=== PATIENT | male | born 1975 | race Caucasian/White ===

== ENCOUNTER 2021-11-11 13:08 | Inpatient (IN) | payer OTHER ==
[2021-11-11 16:56] VITALS: BMI 32.6
[2021-11-11] MEDS ORDERED: LOPERAMIDE HCL 2 MG CAPSULE PO PRN (17:17)
[2021-11-11] MEDS ORDERED: BISMUTH SUBSALICYLATE 524 MG/30 ML PO PRN (17:17)
[2021-11-11] MEDS ORDERED: ACETAMINOPHEN 325 MG TABLET (FP) PO PRN ×2 (17:17)
[2021-11-11] MEDS ORDERED: MAGNESIUM HYDROX 2400MG/30ML ORAL SUSPENSION 30 ML CUP PO PRN (17:17)
[2021-11-11] MEDS ORDERED: MAGNESIUM CITRATE 300 ML BOTTLE PO PRN (17:17)
[2021-11-11] MEDS ORDERED: IBUPROFEN 400 MG TABLET (FP) PO PRN (17:17)
[2021-11-11] MEDS ORDERED: MAG HYDROX/AL HYDROX/SIMETH 30 ML UNIT-DOSE CUP PO PRN (17:17)
[2021-11-11] MEDS ORDERED: ONDANSETRON *ODT* 4 MG TABLET SL PRN (17:17)
[2021-11-11] MEDS ORDERED: MENTHOL/PHENOL 1 EACH UD MM PRN (17:17)
[2021-11-11] MEDS ORDERED: hydrOXYzine PAMOATE 25 MG CAPSULE (FP) PO PRN (17:17)
[2021-11-11] MEDS ORDERED: MELATONIN 5 MG TABLETS PO PRN (17:17)
[2021-11-11] MEDS ORDERED: NICOTINE 10 MG CARTRIDGE (INHALER) IH PRN (17:17)
[2021-11-11] MEDS ORDERED: METHOCARBAMOL 500 MG TABLET PO PRN (17:17)
[2021-11-11] MEDS ORDERED: methaDONE HCL 10 MG TABLET (FOR DETOX USE ONLY) PO ONE (17:19)
[2021-11-11] MEDS ORDERED: cloNIDine HCL 0.1 MG TABLET PO PRN (17:19)
[2021-11-11] MEDS ORDERED: methaDONE HCL 10 MG TABLET (FOR DETOX USE ONLY) ONE (20:16)
[2021-11-11] MEDS ORDERED: THIAMINE HCL 100 MG TABLET (FP) PO SCH (22:00)
[2021-11-12] MEDS: diazePAM 5 MG TABLET PO PRN ×3 (02:19→10:17)
[2021-11-12] MEDS ORDERED: methaDONE HCL 10 MG TABLET (FOR DETOX USE ONLY) ONE (09:12)
[2021-11-12 09:35] VITALS: BP 136/90; PULSE 51; TEMP 97.7
[2021-11-12] MEDS ORDERED: PRENATAL VITAMINS W/ FOLIC ACID TABLET (FP) PO SCH (10:00)
[2021-11-12 10:52] LABS: HEMATOCRIT 38.2 % (35.4-49); HEMOGLOBIN 13.3 GM/dL (11.7-16.9); MCH 30.4 pg (25.7-33.7); MCHC 34.7 g/dl (32.0-35.9); MEAN CELL VOLUME 87.6 fl (80-96); MEAN PLT VOLUME 7.9 fl (7.5-11.1); PLATELET COUNT 173 10^3/uL (134-434); RBC 4.37 M/mm3 (4.00-5.60); RDW 12.9 % (11.9-15.9); WHITE BLOOD COUNT 4.8 K/mm3 (4.0-10.0)
[2021-11-12 11:20] LABS: ALBUMIN 3.3 g/dl (3.4-5.0); CALCIUM 8.6 mg/dL (8.5-10.1)
[2021-11-12 11:21] LABS: BLOOD UREA NITROGEN 12.1 mg/dL (7-18)
[2021-11-12 11:23] LABS: CREATININE 0.8 mg/dL (0.55-1.3)
[2021-11-12 11:25] LABS: TOT PROT 6.3 g/dl (6.4-8.2)
[2021-11-12 11:26] LABS: BILIRUBIN,TOTAL 0.4 mg/dL (0.2-1)
[2021-11-13] MEDS ORDERED: methaDONE HCL 10 MG TABLET (FOR DETOX USE ONLY) PO ONE (10:00)
[2021-11-15] MEDS ORDERED: methaDONE HCL 10 MG TABLET (FOR DETOX USE ONLY) PO ONE (10:00)
== END 2021-11-12 13:42 | disposition left against medical advice (07) | DRG 770 ==
LOC: YASAS 13:08 → Y6N 19:20
PROVIDERS: ADMIT Allergy & Immunology; ATTEND Allergy & Immunology
PROC: HZ2ZZZZ Detoxification Services for Substance Abuse Treatment (ICD-10-PCS; principal; 2021-11-11)
DX: F11.23 Opioid dependence with withdrawal (principal); F14.20 Cocaine dependence, uncomplicated; F13.10 Sedative, hypnotic or anxiolytic abuse, uncomplicated; F12.20 Cannabis dependence, uncomplicated; F17.210 Nicotine dependence, cigarettes, uncomplicated; Z87.828 Personal history of other (healed) physical injury and trauma
CPT/HCPCS: 36415; 80053; 85027; 86780; 87811; 93005; 93010; C9803-CS; J0735; U0003; U0005

== ENCOUNTER 2022-02-27 00:11 | Observation (INO) | payer OTHER ==
[2022-02-27 00:27] VITALS: BMI 21.2
[2022-02-27] MEDS ORDERED: DEXTROSE 50%-WATER - 25 GM/50 ML VIAL IVPUSH ONE (00:46)
[2022-02-27] MEDS ORDERED: FOLIC ACID INJECTION - 1 MG, THIAMINE HCL 100 MG, MULTIVIT INJECTION ADULT 10 ML in SOD... IVPB ONE (00:46)
[2022-02-27] MEDS ORDERED: DEXTROSE 50%-WATER 25 GM/50 ML DISP.SYRIN ONE (00:55)
[2022-02-27 01:33] LABS: BASO % 0.8 % (0-2.0); EOS % 1.9 % (0-4.5); HEMATOCRIT 37.5 % (35.4-49); LYMPH % 36.3 % (8-40); MCH 30.7 pg (25.7-33.7); MCHC 34.5 g/dl (32.0-35.9); MEAN CELL VOLUME 88.9 fl (80-96); MEAN PLT VOLUME 6.9 fl (7.5-11.1); MONO % 11.4 % (3.8-10.2); NEUT % 49.6 % (42.8-82.8); PLATELET COUNT 244 10^3/uL (134-434); RBC 4.22 M/mm3 (4.00-5.60); WHITE BLOOD COUNT 7.5 K/mm3 (4.0-10.0)
[2022-02-27 01:40] LABS: PROTHROMBIN TIME (PATIENT) 11.5 SEC (9.7-13.0)
[2022-02-27 01:43] LABS: ACTIVATED PTT 35.3 SECONDS (25.2-36.5)
[2022-02-27 01:51] LABS: CHLORIDE 103 mmol/L (98-107); SODIUM 141 mmol/L (136-145)
[2022-02-27 01:53] LABS: ANION GAP 6 MMOL/L (8-16); BLOOD UREA NITROGEN 15.6 mg/dL (7-18); CALCIUM 8.9 mg/dL (8.5-10.1); CO2 31 mmol/L (21-32); GLUCOSE,RANDOM 75 mg/dL (74-106)
[2022-02-27 01:56] LABS: CREATININE 0.7 mg/dL (0.55-1.3); SGOT/AST 35 U/L (15-37); SGPT/ALT 57 U/L (13-61)
[2022-02-27 01:58] LABS: BILIRUBIN,TOTAL 0.3 mg/dL (0.2-1)
[2022-02-27 01:59] LABS: ALK PHOS 174 U/L (45-117)
[2022-02-27 04:00] LABS: URINE APPEARANCE CLEAR; URINE BILIRUBIN NEGATIVE (NEGATIVE); URINE COLOR YELLOW; URINE GLUCOSE (UA) TRACE (NEGATIVE); URINE KETONE NEGATIVE (NEGATIVE); URINE LEUK ESTERASE NEGATIVE (NEGATIVE); URINE NITRITE NEGATIVE (NEGATIVE); URINE PROTEIN NEGATIVE (NEGATIVE); URINE UROBILINOGEN 0.2 mg/dL (0.2-1.0)
[2022-02-27] MEDS ORDERED: chlordiazePOXIDE HCL 25 MG CAPSULE PO SCH (05:00)
[2022-02-27 05:41] LABS: OPIATES, URI NEGATIVE (NEGATIVE); URINE AMPHETAMINES NEGATIVE (NEGATIVE); URINE BARBITURATES NEGATIVE (NEGATIVE)
[2022-02-27 05:42] LABS: PHENCYCLIDINE,URINE NEGATIVE (NEGATIVE); URINE BENZODIAZEPINES NEGATIVE (NEGATIVE)
[2022-02-27 05:53] LABS: COCAINE, UR POSITIVE (NEGATIVE); METHADONE, UR POSITIVE (NEGATIVE)
[2022-02-27 06:23] VITALS: BP 145/92; PULSE 54; TEMP 98.1
[2022-02-27] MEDS ORDERED: D5-NS + 20 MEQ KCL - 20 MEQ/1,000 ML INFUS.BAG IV SCH (08:45)
[2022-02-27] MEDS ORDERED: LORazepam 1 MG TABLET PO PRN (09:00)
[2022-02-27] MEDS ORDERED: ONDANSETRON 4 MG/2 ML VIAL IVPUSH PRN (09:00)
[2022-02-27] MEDS ORDERED: chlordiazePOXIDE HCL 25 MG CAPSULE PO PRN (09:16)
[2022-02-27] MEDS ORDERED: PANTOPRAZOLE SODIUM 40 MG VIAL IVPUSH SCH (10:00)
[2022-02-27] MEDS ORDERED: THIAMINE HCL 200 MG/2 ML VIAL IVPB SCH (10:00)
[2022-02-27] MEDS ORDERED: FOLIC ACID 1 MG TABLET (FP) PO SCH (10:00)
[2022-02-28] MEDS ORDERED: chlordiazePOXIDE HCL 25 MG CAPSULE PO SCH (05:00)
[2022-03-01] MEDS ORDERED: chlordiazePOXIDE HCL 10 MG CAPSULE PO PRN
[2022-03-01] MEDS ORDERED: chlordiazePOXIDE HCL 10 MG CAPSULE PO SCH (05:00)
[2022-03-02] MEDS ORDERED: chlordiazePOXIDE HCL 10 MG CAPSULE PO SCH (05:00)
[2022-03-03] MEDS ORDERED: chlordiazePOXIDE HCL 10 MG CAPSULE PO ONE (05:00)
== END 2022-02-27 09:37 | disposition left against medical advice (07) ==
LOC: JER 00:11 → UNDOADMOB 05:49 → JERBED 05:49
PROVIDERS: ADMIT Internal Medicine; ATTEND Internal Medicine
PROC: 3E0337Z Introduction of Electrolytic and Water Balance Substance into Peripheral Vein, Percutaneous Approach (ICD-10-PCS; principal; 2022-02-27)
PROC: 3E033GC Introduction of Other Therapeutic Substance into Peripheral Vein, Percutaneous Approach (ICD-10-PCS; 2022-02-27)
DX: R94.31 Abnormal electrocardiogram [ECG] [EKG] (principal); F11.10 Opioid abuse, uncomplicated; F10.99 Alcohol use, unspecified with unspecified alcohol-induced disorder; F17.210 Nicotine dependence, cigarettes, uncomplicated; W18.39XA Other fall on same level, initial encounter; Y93.89 Activity, other specified; Y92.239 Unspecified place in hospital as the place of occurrence of the external cause; R55 Syncope and collapse
CPT/HCPCS: 36415; 70450-TC; 71260-TC; 72125-TC; 72128-TC; 72131-TC; 74177-TC; 80053; 80307; 81003; 82962; 84439; 84443; 84484; 85025; 85610; 85730; 86850; 86900; 86901; 93005; 93010; 96361; 96365; 99285-25; C9803-CS; G0378; Q9967; U0003; U0005

== ENCOUNTER 2022-05-12 18:52 | Inpatient (IN) | payer OTHER ==
[2022-05-12 19:57] VITALS: BMI 21.4
[2022-05-12] MEDS ORDERED: IBUPROFEN 600 MG TABLET (FP) PO PRN (20:20)
[2022-05-12] MEDS ORDERED: NICOTINE POLACRILEX 2 MG GUM BUC PRN (20:20)
[2022-05-12] MEDS ORDERED: MELATONIN 5 MG TABLETS PO PRN (20:20)
[2022-05-12] MEDS ORDERED: P-EPHED 60MG/TRIPROLIDI 2.5MG TABLET PO PRN (20:20)
[2022-05-12] MEDS ORDERED: BENZOCAINE/MENTHOL (CHLORASEPTIC ) LOZENGE MM PRN (20:20)
[2022-05-12] MEDS ORDERED: guaiFENesin 200 MG/10 ML 10 ML UNIT-DOSE CUPS PO PRN (20:20)
[2022-05-12] MEDS ORDERED: MAG HYDROX/AL HYDROX/SIMETH 30 ML UNIT-DOSE CUP PO PRN (20:20)
[2022-05-12] MEDS ORDERED: ACETAMINOPHEN 325 MG TABLET (FP) PO PRN ×2 (20:20)
[2022-05-12] MEDS ORDERED: NALOXONE HCL (KLOXXADO) 8 MG SPRAY NS PRN (20:20)
[2022-05-12] MEDS ORDERED: BISMUTH SUBSALICYLATE 524 MG/30 ML PO PRN (20:20)
[2022-05-12] MEDS ORDERED: PROCHLORPERAZINE MALEATE 5 MG TABLET PO PRN (20:20)
[2022-05-12] MEDS ORDERED: METHOCARBAMOL 500 MG TABLET PO PRN (20:20)
[2022-05-12] MEDS ORDERED: NICOTINE 10 MG CARTRIDGE (INHALER) IH PRN (20:20)
[2022-05-12] MEDS ORDERED: MAGNESIUM CITRATE 300 ML BOTTLE PO PRN (20:20)
[2022-05-12] MEDS ORDERED: IBUPROFEN 400 MG TABLET (FP) PO PRN (20:20)
[2022-05-12] MEDS ORDERED: LOPERAMIDE HCL 2 MG CAPSULE PO PRN (20:20)
[2022-05-12] MEDS ORDERED: hydrOXYzine PAMOATE 25 MG CAPSULE (FP) PO PRN (20:20)
[2022-05-12] MEDS ORDERED: MAGNESIUM HYDROX 2400MG/30ML ORAL SUSPENSION 30 ML CUP PO PRN (20:20)
[2022-05-12] MEDS ORDERED: DICYCLOMINE HCL 10 MG CAPSULE PO PRN (20:20)
[2022-05-12] MEDS ORDERED: cloNIDine HCL 0.1 MG TABLET PO PRN (20:23)
[2022-05-12] MEDS ORDERED: diazePAM 5 MG TABLET PO PRN (20:24)
[2022-05-12] MEDS ORDERED: THIAMINE HCL 100 MG TABLET (FP) PO SCH (22:00)
[2022-05-12] MEDS ORDERED: methaDONE HCL 10 MG TABLET (FOR DETOX USE ONLY) PO ONE (23:00)
[2022-05-13] MEDS ORDERED: cloNIDine HCL 0.1 MG TABLET PO PRN (00:48)
[2022-05-13] MEDS ORDERED: methaDONE HCL 10 MG TABLET (FOR DETOX USE ONLY) PO ONE (00:48)
[2022-05-13 09:07] VITALS: BP 153/91; PULSE 47; RESP 16; TEMP 98
[2022-05-13] MEDS ORDERED: NICOTINE 14 MG/24 HOURS TOPICAL PATCH TD SCH (10:00)
[2022-05-13] MEDS ORDERED: PRENATAL VITAMINS W/ FOLIC ACID TABLET (FP) PO SCH (10:00)
[2022-05-13 12:49] LABS: HEMATOCRIT 37.8 % (35.4-49); HEMOGLOBIN 12.6 GM/dL (11.7-16.9); MCH 29.5 pg (25.7-33.7); MCHC 33.4 g/dl (32.0-35.9); MEAN CELL VOLUME 88.2 fl (80-96); MEAN PLT VOLUME 7.9 fl (7.5-11.1); PLATELET COUNT 194 10^3/uL (134-434); RBC 4.29 M/mm3 (4.00-5.60); WHITE BLOOD COUNT 4.7 K/mm3 (4.0-10.0)
[2022-05-13 12:57] LABS: ALBUMIN 3.1 g/dl (3.4-5.0); CALCIUM 8.4 mg/dL (8.5-10.1)
[2022-05-13 12:58] LABS: BLOOD UREA NITROGEN 18.2 mg/dL (7-18)
[2022-05-13 13:00] LABS: CREATININE 0.6 mg/dL (0.55-1.3)
[2022-05-13 13:02] LABS: BILIRUBIN,TOTAL 0.2 mg/dL (0.2-1)
[2022-05-14] MEDS ORDERED: methaDONE HCL 10 MG TABLET (FOR DETOX USE ONLY) PO ONE (10:00)
[2022-05-15] MEDS ORDERED: methaDONE HCL 10 MG TABLET (FOR DETOX USE ONLY) PO ONE (10:00)
[2022-05-16] MEDS ORDERED: methaDONE HCL 10 MG TABLET (FOR DETOX USE ONLY) PO ONE (10:00)
[2022-05-17] MEDS ORDERED: methaDONE HCL 10 MG TABLET (FOR DETOX USE ONLY) PO ONE (10:00)
== END 2022-05-13 10:20 | disposition left against medical advice (07) | DRG 770 ==
LOC: YASAS 18:52 → UNDOADMIN 20:30 → Y3N 20:30 → UNDODISIN 05-13 10:20
PROVIDERS: ADMIT Allergy & Immunology; ATTEND Surgery
PROC: HZ2ZZZZ Detoxification Services for Substance Abuse Treatment (ICD-10-PCS; principal; 2022-05-12)
DX: F11.23 Opioid dependence with withdrawal (principal); F14.20 Cocaine dependence, uncomplicated; F12.20 Cannabis dependence, uncomplicated; F17.210 Nicotine dependence, cigarettes, uncomplicated; R00.1 Bradycardia, unspecified
CPT/HCPCS: 36415; 80053; 85027; 86780; 93005; 93010; C9803-CS; U0003; U0005

== ENCOUNTER 2023-09-09 13:09 | Inpatient (IN) | payer OTHER ==
[2023-09-09 14:12] VITALS: BMI 20.7
[2023-09-09] MEDS ORDERED: POLYETHYLENE GLYCOL (HEALTHYLAX) 3350 17 GM PACKET PO PRN (16:14)
[2023-09-09] MEDS ORDERED: P-EPHED 60MG/TRIPROLIDI 2.5MG TABLET PO PRN (16:14)
[2023-09-09] MEDS ORDERED: IBUPROFEN 600 MG TABLET (FP) PO PRN (16:14)
[2023-09-09] MEDS ORDERED: NALOXONE HCL (KLOXXADO) 8 MG SPRAY NS PRN (16:14)
[2023-09-09] MEDS ORDERED: ONDANSETRON *ODT* 4 MG TABLET SL PRN (16:14)
[2023-09-09] MEDS ORDERED: MAGNESIUM HYDROX 2400MG/30ML ORAL SUSPENSION 30 ML CUP PO PRN (16:14)
[2023-09-09] MEDS ORDERED: hydrOXYzine PAMOATE 25 MG CAPSULE (FP) PO PRN (16:14)
[2023-09-09] MEDS ORDERED: guaiFENesin 600 MG TABLET.ER (FP) PO PRN (16:14)
[2023-09-09] MEDS ORDERED: BISMUTH SUBSALICYLATE 524 MG/30 ML PO PRN (16:14)
[2023-09-09] MEDS ORDERED: MAG HYDROX/AL HYDROX/SIMETH 30 ML UNIT-DOSE CUP PO PRN (16:14)
[2023-09-09] MEDS ORDERED: ACETAMINOPHEN 325 MG TABLET (FP) PO PRN (16:14)
[2023-09-09] MEDS ORDERED: BENZOCAINE/MENTHOL (CHLORASEPTIC ) LOZENGE MM PRN (16:14)
[2023-09-09] MEDS ORDERED: DICYCLOMINE HCL 10 MG CAPSULE PO PRN (16:14)
[2023-09-09] MEDS ORDERED: NICOTINE POLACRILEX 2 MG LOZENGE BC PRN (16:14)
[2023-09-09] MEDS ORDERED: IBUPROFEN 400 MG TABLET (FP) PO PRN (16:14)
[2023-09-09] MEDS ORDERED: BENZONATATE 200 MG CAPSULE PO PRN (16:14)
[2023-09-09] MEDS ORDERED: NALOXONE HCL 0.4 MG/ML VIAL IM PRN (16:14)
[2023-09-09] MEDS ORDERED: LOPERAMIDE HCL 2 MG CAPSULE PO PRN (16:14)
[2023-09-09] MEDS ORDERED: cloNIDine HCL 0.1 MG TABLET PO PRN (16:17)
[2023-09-09] MEDS ORDERED: methaDONE HCL 10 MG TABLET (FOR DETOX USE ONLY) PO ONE (17:15)
[2023-09-09] MEDS ORDERED: methaDONE HCL 10 MG TABLET (FOR DETOX USE ONLY) ONE (17:21)
[2023-09-09] MEDS: diazePAM 5 MG TABLET PO PRN (18:18)
[2023-09-09] MEDS: THIAMINE HCL 100 MG TABLET (FP) PO SCH (22:19)
[2023-09-09] MEDS: MELATONIN 5 MG TABLETS PO SCH (22:47)
[2023-09-10] MEDS: diazePAM 5 MG TABLET PO PRN ×4 (04:40→18:58)
[2023-09-10] MEDS: PRENATAL VITAMINS W/ FOLIC ACID TABLET (FP) PO SCH (10:06)
[2023-09-10 10:39] LABS: HEMATOCRIT 41.2 % (35.4-49); HEMOGLOBIN 13.7 GM/dL (11.7-16.9); MCH 30.9 pg (25.7-33.7); MCHC 33.2 g/dl (32.0-35.9); MEAN PLT VOLUME 8.2 fl (7.5-11.1); PLATELET COUNT 193 10^3/uL (134-434); RBC 4.43 M/mm3 (4.00-5.60); RDW 13.2 % (11.9-15.9); WHITE BLOOD COUNT 5.7 K/mm3 (4.0-10.0)
[2023-09-10 11:16] LABS: CHLORIDE 107 mmol/L (98-107); SODIUM 139 mmol/L (136-145)
[2023-09-10 11:38] LABS: CALCIUM 8.9 mg/dL (8.5-10.1)
[2023-09-10 11:39] LABS: ALBUMIN 3.4 g/dl (3.4-5.0); ANION GAP 6 mmol/L (4-13); BLOOD UREA NITROGEN 20.8 mg/dL (7-18); CO2 26 mmol/L (21-32); GLUCOSE,RANDOM 94 mg/dL (74-106)
[2023-09-10 11:42] LABS: CREATININE 0.7 mg/dL (0.55-1.3); SGOT/AST 22 U/L (15-37)
[2023-09-10 11:43] LABS: BILIRUBIN,TOTAL 0.3 mg/dL (0.2-1); TOT PROT 6.4 g/dl (6.4-8.2)
[2023-09-10 11:45] LABS: ALK PHOS 97 U/L (45-117)
[2023-09-10 11:53] LABS: SGPT/ALT 34 U/L (13-61)
[2023-09-10] MEDS: NICOTINE POLACRILEX 2 MG GUM BUC PRN (13:39)
[2023-09-10] MEDS: MELATONIN 5 MG TABLETS PO SCH (22:10)
[2023-09-10] MEDS: THIAMINE HCL 100 MG TABLET (FP) PO SCH (22:10)
[2023-09-10] MEDS: METHOCARBAMOL 500 MG TABLET PO PRN (22:10)
[2023-09-11] MEDS: diazePAM 5 MG TABLET PO PRN ×2 (07:38→19:00)
[2023-09-11] MEDS ORDERED: methaDONE HCL 10 MG TABLET (FOR DETOX USE ONLY) PO ONE (10:00)
[2023-09-11] MEDS: PRENATAL VITAMINS W/ FOLIC ACID TABLET (FP) PO SCH (10:07)
[2023-09-11] MEDS: MELATONIN 5 MG TABLETS PO SCH (23:25)
[2023-09-11] MEDS: THIAMINE HCL 100 MG TABLET (FP) PO SCH (23:25)
[2023-09-12] MEDS: diazePAM 5 MG TABLET PO PRN ×5 (01:07→20:55)
[2023-09-12] MEDS: PRENATAL VITAMINS W/ FOLIC ACID TABLET (FP) PO SCH (10:25)
[2023-09-12] MEDS: NICOTINE POLACRILEX 2 MG GUM BUC PRN ×2 (10:31→14:47)
[2023-09-12] MEDS: THIAMINE HCL 100 MG TABLET (FP) PO SCH (22:07)
[2023-09-12] MEDS: MELATONIN 5 MG TABLETS PO SCH (22:08)
[2023-09-13] MEDS: diazePAM 5 MG TABLET PO PRN ×5 (00:26→22:16)
[2023-09-13] MEDS: PRENATAL VITAMINS W/ FOLIC ACID TABLET (FP) PO SCH (09:41)
[2023-09-13] MEDS: METHOCARBAMOL 500 MG TABLET PO PRN ×2 (09:42→22:16)
[2023-09-13] MEDS ORDERED: methaDONE HCL 10 MG TABLET (FOR DETOX USE ONLY) PO ONE (10:00)
[2023-09-13] MEDS: NICOTINE POLACRILEX 2 MG GUM BUC PRN (17:41)
[2023-09-13 20:45] VITALS: PULSE 64
[2023-09-13] MEDS: MELATONIN 5 MG TABLETS PO SCH (22:15)
[2023-09-13] MEDS: THIAMINE HCL 100 MG TABLET (FP) PO SCH (22:17)
[2023-09-14] MEDS ORDERED: MELATONIN 5 MG TABLETS PO ONE (00:18)
[2023-09-14] MEDS: diazePAM 5 MG TABLET PO PRN ×2 (02:27→05:49)
[2023-09-14 06:10] VITALS: BP 151/95; RESP 16; TEMP 98
== END 2023-09-14 08:55 | disposition home or self-care (01) | DRG 773 ==
LOC: YASAS 13:09 → Y6N 17:12
PROVIDERS: ADMIT Allergy & Immunology; ATTEND Surgery
PROC: HZ2ZZZZ Detoxification Services for Substance Abuse Treatment (ICD-10-PCS; principal; 2023-09-09)
DX: F11.23 Opioid dependence with withdrawal (principal); F10.230 Alcohol dependence with withdrawal, uncomplicated; F13.230 Sedative, hypnotic or anxiolytic dependence with withdrawal, uncomplicated; F17.210 Nicotine dependence, cigarettes, uncomplicated; F14.10 Cocaine abuse, uncomplicated; F41.9 Anxiety disorder, unspecified
CPT/HCPCS: 0241U-QW; 36415; 80053; 80307; 85027; 86780; 87635; 87811

== ENCOUNTER 2023-10-10 18:00 | Inpatient (IN) | payer OTHER ==
[2023-10-10] MEDS ORDERED: NICOTINE POLACRILEX 2 MG GUM BUC PRN (19:42)
[2023-10-10] MEDS ORDERED: guaiFENesin 600 MG TABLET.ER (FP) PO PRN (19:42)
[2023-10-10] MEDS ORDERED: MAG HYDROX/AL HYDROX/SIMETH 30 ML UNIT-DOSE CUP PO PRN (19:42)
[2023-10-10] MEDS ORDERED: MAGNESIUM HYDROX 2400MG/30ML ORAL SUSPENSION 30 ML CUP PO PRN (19:42)
[2023-10-10] MEDS ORDERED: P-EPHED 60MG/TRIPROLIDI 2.5MG TABLET PO PRN (19:42)
[2023-10-10] MEDS ORDERED: ACETAMINOPHEN 325 MG TABLET (FP) PO PRN (19:42)
[2023-10-10] MEDS ORDERED: LOPERAMIDE HCL 2 MG CAPSULE PO PRN (19:42)
[2023-10-10] MEDS ORDERED: BENZOCAINE/MENTHOL (CHLORASEPTIC ) LOZENGE MM PRN (19:42)
[2023-10-10] MEDS ORDERED: DOCUSATE SODIUM 100 MG CAPSULE (FP) PO PRN (19:42)
[2023-10-10] MEDS ORDERED: NICOTINE POLACRILEX 2 MG LOZENGE BC PRN (19:42)
[2023-10-10] MEDS ORDERED: BISMUTH SUBSALICYLATE 524 MG/30 ML PO PRN (19:42)
[2023-10-10] MEDS ORDERED: NALOXONE HCL 0.4 MG/ML VIAL IM PRN (19:42)
[2023-10-10] MEDS ORDERED: POLYETHYLENE GLYCOL (HEALTHYLAX) 3350 17 GM PACKET PO PRN (19:42)
[2023-10-10] MEDS ORDERED: IBUPROFEN 400 MG TABLET (FP) PO PRN (19:42)
[2023-10-10] MEDS ORDERED: NALOXONE HCL (KLOXXADO) 8 MG SPRAY NS PRN (19:42)
[2023-10-10] MEDS ORDERED: DICYCLOMINE HCL 10 MG CAPSULE PO PRN (19:42)
[2023-10-10] MEDS ORDERED: BENZONATATE 200 MG CAPSULE PO PRN (19:42)
[2023-10-10] MEDS: methaDONE HCL 10 MG TABLET (FOR DETOX USE ONLY) PO ONE (22:12)
[2023-10-10] MEDS: THIAMINE HCL 100 MG TABLET (FP) PO SCH (22:14)
[2023-10-10] MEDS: clonazePAM 0.5 MG ODT TABLETS SL PRN (22:16)
[2023-10-10] MEDS: MELATONIN 5 MG TABLETS PO SCH (22:46)
[2023-10-11] MEDS: IBUPROFEN 600 MG TABLET (FP) PO PRN (00:01)
[2023-10-11] MEDS: NICOTINE 7 MG/24 HOURS TOPICAL PATCH TD SCH (10:07)
[2023-10-11] MEDS: PRENATAL VITAMINS W/ FOLIC ACID TABLET (FP) PO SCH (10:09)
[2023-10-11] MEDS: SUVOREXANT 10 MG TABLET PO PRN (22:32)
[2023-10-12 09:02] VITALS: BP 143/87; PULSE 70; RESP 18; TEMP 97.9
[2023-10-12] MEDS: METHOCARBAMOL 500 MG TABLET PO PRN (10:21)
[2023-10-12] MEDS: methaDONE HCL 10 MG TABLET (FOR DETOX USE ONLY) PO ONE (10:22)
[2023-10-14] MEDS ORDERED: methaDONE HCL 10 MG TABLET (FOR DETOX USE ONLY) PO ONE (10:00)
== END 2023-10-12 12:22 | disposition left against medical advice (07) | DRG 770 ==
LOC: YASAS 18:00 → Y6N 21:44
PROVIDERS: ADMIT Allergy & Immunology; ATTEND Surgery
PROC: HZ2ZZZZ Detoxification Services for Substance Abuse Treatment (ICD-10-PCS; principal; 2023-10-10)
DX: F11.23 Opioid dependence with withdrawal (principal); F14.20 Cocaine dependence, uncomplicated; F12.20 Cannabis dependence, uncomplicated; F17.210 Nicotine dependence, cigarettes, uncomplicated; F19.282 Other psychoactive substance dependence with psychoactive substance-induced sleep disorder; F19.280 Other psychoactive substance dependence with psychoactive substance-induced anxiety disorder; F19.24 Other psychoactive substance dependence with psychoactive substance-induced mood disorder; F32.9 Major depressive disorder, single episode, unspecified; Z62.810 Personal history of physical and sexual abuse in childhood
CPT/HCPCS: 80305; 87635; 93005; 93010